=== PATIENT | female | born 1955 | race Two or more races ===

== ENCOUNTER 2019-03-22 14:24 | Emergency (ER) | payer MEDICARE, OTHER ==
[2019-03-22 15:19] LABS: ADD MAN DIFF? NO
[2019-03-22 15:21] LABS: BASOPHIL # 0.1 10^3/ul (0.0-0.1); BASOPHILS % 0.6 % (0.0-2.0); EOSINOPHILS # 0.2 10^3/ul (0.0-0.5); EOSINOPHILS % 2.1 % (0.0-7.0); HEMATOCRIT 37.4 % (37.0-47.0); HEMOGLOBIN 12.3 g/dl (12.0-16.0); LYMPHOCYTES # 3.4 10^3/ul (0.8-2.9); MEAN CORPUSCULAR HEMOGLOBIN 25.3 pg (29.0-33.0); MEAN CORPUSCULAR HGB CONC 32.9 g/dl (32.0-37.0); MEAN PLATELET VOLUME 10.6 fl (7.4-10.4); MONOCYTE # 0.7 10^3/ul (0.3-0.9); MONOCYTES % 7.4 % (0.0-11.0); NEUTROPHIL # 5.6 10^3/ul (1.6-7.5); NEUTROPHILS % 55.5 % (39.0-77.0); PLATELET COUNT 382 10^3/UL (140-415); RED BLOOD COUNT 4.86 10^6/ul (4.20-5.40); RED CELL DISTRIBUTION WIDTH 14.3 % (11.5-14.5)
[2019-03-22 15:27] LABS: MODE ROOM AIR; MetHgb Venous 0.7 %; Sample Type Blood venous; Site VENOUS LINE; Venous COHb 0.1 %; Venous Fraction OxyHgb 32.4 %; Venous Oxygen Sat 32.7 mmHG (55.0-75.0); Venous Total Hemglobin 12.8 g/dl
[2019-03-22] MEDS: SOD CHLORIDE 0.9% 920 ML IV (15:33)
[2019-03-22 15:38] LABS: ANION GAP 11 (5-13); BLOOD UREA NITROGEN 13 mg/dl (7-20); CALCIUM 9.7 mg/dl (8.4-10.2); CARBON DIOXIDE 25 mmol/L (21-31); CHLORIDE 101 mmol/L (97-110); CREATININE 1.17 mg/dl (0.44-1.00); Estimated GFR 47 mL/min (>60); GLUCOSE 394 mg/dl (70-220); MAGNESIUM 1.5 mg/dl (1.7-2.5); PHOSPHORUS 3.5 mg/dl (2.5-4.9); SODIUM 137 mmol/L (135-144)
[2019-03-22 17:40] LABS: ADD UMIC NO; UR ASCORBIC ACID NEGATIVE (NEGATIVE); UR BILIRUBIN (Dip) NEGATIVE (NEGATIVE); UR BLOOD (Dip) NEGATIVE (NEGATIVE); UR CLARITY CLEAR (CLEAR); UR COLOR STRAW (YELLOW); UR GLUCOSE (Dip) 3+ mg/dL (NEGATIVE); UR KETONES (Dip) NEGATIVE (NEGATIVE); UR LEUKOCYTE ESTERASE (Dip) NEGATIVE Leu/ul (NEGATIVE); UR NITRITE (Dip) NEGATIVE (NEGATIVE); UR SPECIFIC GRAVITY (Dip) 1.015 (1.003-1.030); UR TOTAL PROTEIN (Dip) NEGATIVE (NEGATIVE); UR UROBILINOGEN (Dip) NEGATIVE (NEGATIVE)
[2019-03-22] MEDS: MAGNESIUM SULFATE 2 GM/50 ML 50 ML IVPB (18:24)
== END 2019-03-22 19:06 | disposition home or self-care (01) ==
LOC: E/R 14:24
DX: R19.7 Diarrhea, unspecified (principal); R11.10 Vomiting, unspecified; E83.42 Hypomagnesemia; Z79.82 Long term (current) use of aspirin; Z79.84 Long term (current) use of oral hypoglycemic drugs
CPT/HCPCS: 36415; 80048; 81003; 82803; 82962; 83735; 84100; 85025; 96374; 99284-25

== ENCOUNTER 2019-03-30 23:32 | Inpatient (IN) | payer MEDICARE, OTHER ==
[2019-03-31] MEDS: SOD CHLORIDE 0.9% 500 ML IV (02:44)
[2019-03-31] MEDS: morphine 4 MG/ML VIAL IV (02:44)
[2019-03-31] MEDS: ONDANSETRON 4 MG INJ IV ×2 (02:44→08:42)
[2019-03-31 02:46] LABS: ADD MAN DIFF? NO
[2019-03-31 02:49] LABS: BASOPHIL # 0.1 10^3/ul (0.0-0.1); BASOPHILS % 0.6 % (0.0-2.0); EOSINOPHILS # 0.3 10^3/ul (0.0-0.5); EOSINOPHILS % 2.7 % (0.0-7.0); HEMATOCRIT 37.1 % (37.0-47.0); HEMOGLOBIN 11.9 g/dl (12.0-16.0); LYMPHOCYTES # 2.9 10^3/ul (0.8-2.9); LYMPHOCYTES % 30.3 % (15.0-51.0); MEAN CORPUSCULAR HEMOGLOBIN 24.9 pg (29.0-33.0); MEAN CORPUSCULAR HGB CONC 32.1 g/dl (32.0-37.0); MEAN CORPUSCULAR VOLUME 77.6 fl (82.0-101.0); MONOCYTE # 0.6 10^3/ul (0.3-0.9); MONOCYTES % 5.9 % (0.0-11.0); NEUTROPHIL # 5.7 10^3/ul (1.6-7.5); NEUTROPHILS % 60.1 % (39.0-77.0); PLATELET COUNT 342 10^3/UL (140-415); RED BLOOD COUNT 4.78 10^6/ul (4.20-5.40); RED CELL DISTRIBUTION WIDTH 14.4 % (11.5-14.5)
[2019-03-31 02:49] LABS: WHITE BLOOD COUNT 9.5 10^3/ul (4.8-10.8)
[2019-03-31 02:53] LABS: ADD UMIC NO; UR ASCORBIC ACID NEGATIVE (NEGATIVE); UR BILIRUBIN (Dip) NEGATIVE (NEGATIVE); UR BLOOD (Dip) NEGATIVE (NEGATIVE); UR CLARITY CLEAR (CLEAR); UR COLOR YELLOW (YELLOW); UR GLUCOSE (Dip) NEGATIVE (NEGATIVE); UR KETONES (Dip) NEGATIVE (NEGATIVE); UR LEUKOCYTE ESTERASE (Dip) NEGATIVE Leu/ul (NEGATIVE); UR NITRITE (Dip) NEGATIVE (NEGATIVE); UR TOTAL PROTEIN (Dip) NEGATIVE (NEGATIVE); UR UROBILINOGEN (Dip) NEGATIVE (NEGATIVE)
[2019-03-31 03:10] LABS: ALANINE AMINOTRANSFERASE 34 IU/L (13-69); ALBUMIN 3.9 g/dl (3.3-4.9); ALBUMIN/GLOBULIN RATIO 1.08; ALKALINE PHOSPHATASE 90 IU/L (42-121); ANION GAP 10 (5-13); ASPARTATE AMINO TRANSFERASE 24 IU/L (15-46); BILIRUBIN,INDIRECT 0.3 mg/dl (0-1.1); BILIRUBIN,TOTAL 0.3 mg/dl (0.2-1.3); BLOOD UREA NITROGEN 13 mg/dl (7-20); CALCIUM 9.5 mg/dl (8.4-10.2); CARBON DIOXIDE 25 mmol/L (21-31); CHLORIDE 104 mmol/L (97-110); CREATININE 0.94 mg/dl (0.44-1.00); Estimated GFR > 60 mL/min (>60); GLUCOSE 201 mg/dl (70-220); LIPASE 139 U/L (23-300); POTASSIUM 4.1 mmol/L (3.5-5.1); SODIUM 139 mmol/L (135-144); TOTAL PROTEIN 7.5 g/dl (6.1-8.1)
[2019-03-31] MEDS: PIPER-TAZO 3.375 GM IV (PMX) 100 ML IVPB (03:22)
[2019-03-31] MEDS ORDERED: ACETAMINOPHEN 325 MG TAB PO (03:30)
[2019-03-31] MEDS ORDERED: ONDANSETRON 4 MG INJ IV (03:30)
[2019-03-31] MEDS ORDERED: ALBUTEROL/IPRATROPIUM (NEB) 3 ML AMP HHN (04:00)
[2019-03-31] MEDS ORDERED: HYDROCODONE/APAP (5/325) TAB PO (04:00)
[2019-03-31] MEDS ORDERED: NACL 0.9% 3 ML SYG IV (04:00)
[2019-03-31] MEDS: HYDROCODONE/APAP (5/325) TAB PO ×2 (04:51→12:14)
[2019-03-31] MEDS ORDERED: VANCOMYCIN IV PER PHARMACY XX (07:00)
[2019-03-31] MEDS: ACCU-CHEK XX ×4 (07:05→21:00)
[2019-03-31] MEDS: CEFEPIME 1GM/50 ML (PMX) 50 ML IVPB ×2 (08:11→21:34)
[2019-03-31] MEDS: GABAPENTIN 100 MG CAP PO ×3 (08:12→21:34)
[2019-03-31] MEDS: ASPIRIN (EC) 81 MG TAB PO (08:12)
[2019-03-31] MEDS: HEPARIN 5,000 UNIT/1 ML VIAL SC ×2 (08:12→21:39)
[2019-03-31] MEDS: BENAZEPRIL 40 MG TAB PO (08:13)
[2019-03-31] MEDS: VANCOMYCIN 1.5 GM/NS 250 ML 250 ML IVPB (08:18)
[2019-03-31] MEDS: INSULIN ASPART [NOVOLOG] 3 ML PEN SC ×5 (13:22→21:00)
[2019-03-31] MEDS ORDERED: GLUCOSE GEL 15 GRAM TUBE BUCCAL (13:30)
[2019-03-31] MEDS ORDERED: GLUCAGON 1 MG INJ IM (13:30)
[2019-03-31] MEDS ORDERED: DEXTROSE 50% 50 ML SYRINGE IV ×2 (13:30)
[2019-03-31] MEDS ORDERED: GLUCOSE GEL 15 GRAM TUBE PO ×2 (13:30)
[2019-03-31 13:40] LABS: HEMOGLOBIN A1C 13.2 % (0-5.9)
[2019-03-31] MEDS: VANCOMYCIN 1 GM 250 ML IVPB (17:32)
[2019-03-31] MEDS: INSULIN GLARGINE [LANTus] (100 UNITS/ML) SYG SC (20:20)
[2019-03-31] MEDS: ATORVASTATIN 40 MG TAB PO (21:34)
[2019-04-01] MEDS: ACCU-CHEK XX ×5 (02:00→20:43)
[2019-04-01 06:02] LABS: ADD MAN DIFF? NO
[2019-04-01 06:12] LABS: WHITE BLOOD COUNT 6.7 10^3/ul (4.8-10.8)
[2019-04-01 06:12] LABS: BASOPHILS % 0.6 % (0.0-2.0); EOSINOPHILS # 0.2 10^3/ul (0.0-0.5); EOSINOPHILS % 2.4 % (0.0-7.0); HEMATOCRIT 32.1 % (37.0-47.0); HEMOGLOBIN 10.4 g/dl (12.0-16.0); LYMPHOCYTES # 2.3 10^3/ul (0.8-2.9); LYMPHOCYTES % 34.4 % (15.0-51.0); MEAN CORPUSCULAR HEMOGLOBIN 25.5 pg (29.0-33.0); MEAN CORPUSCULAR HGB CONC 32.4 g/dl (32.0-37.0); MEAN CORPUSCULAR VOLUME 78.7 fl (82.0-101.0); MEAN PLATELET VOLUME 11.2 fl (7.4-10.4); MONOCYTE # 0.4 10^3/ul (0.3-0.9); MONOCYTES % 5.4 % (0.0-11.0); NEUTROPHIL # 3.8 10^3/ul (1.6-7.5); NEUTROPHILS % 56.9 % (39.0-77.0); PLATELET COUNT 285 10^3/UL (140-415); RED BLOOD COUNT 4.08 10^6/ul (4.20-5.40); RED CELL DISTRIBUTION WIDTH 14.6 % (11.5-14.5)
[2019-04-01] MEDS: VANCOMYCIN 1 GM 250 ML IVPB ×2 (06:13→17:49)
[2019-04-01 06:55] LABS: ALANINE AMINOTRANSFERASE 23 IU/L (13-69); ALBUMIN/GLOBULIN RATIO 1.11; ALKALINE PHOSPHATASE 73 IU/L (42-121); ANION GAP 4 (5-13); ASPARTATE AMINO TRANSFERASE 22 IU/L (15-46); BILIRUBIN,INDIRECT 0.4 mg/dl (0-1.1); BILIRUBIN,TOTAL 0.4 mg/dl (0.2-1.3); BLOOD UREA NITROGEN 9 mg/dl (7-20); CALCIUM 8.7 mg/dl (8.4-10.2); CARBON DIOXIDE 26 mmol/L (21-31); CHLORIDE 107 mmol/L (97-110); CHOL/HDL RATIO 4.4 RATIO; CHOLESTEROL 137 mg/dl (100-200); CREATININE 0.68 mg/dl (0.44-1.00); Estimated GFR > 60 mL/min (>60); GLUCOSE 148 mg/dl (70-220); HDL CHOLESTEROL 31 mg/dl (35-98); LDL CHOLESTEROL,CALCULATED 76 mg/dl; MAGNESIUM 1.5 mg/dl (1.7-2.5); PHOSPHORUS 3.6 mg/dl (2.5-4.9); POTASSIUM 4.2 mmol/L (3.5-5.1); SODIUM 137 mmol/L (135-144); TOTAL PROTEIN 5.7 g/dl (6.1-8.1); TRIGLYCERIDES 152 mg/dl (0-149)
[2019-04-01] MEDS: INSULIN ASPART [NOVOLOG] 3 ML PEN SC ×7 (07:35→20:41)
[2019-04-01 08:04] LABS: HEMOGLOBIN A1C 13.2 % (0-5.9)
[2019-04-01] MEDS: ASPIRIN (EC) 81 MG TAB PO (08:48)
[2019-04-01] MEDS: GABAPENTIN 100 MG CAP PO ×3 (08:48→20:34)
[2019-04-01] MEDS: HYDROCODONE/APAP (5/325) TAB PO ×2 (08:48→20:37)
[2019-04-01] MEDS: CEFEPIME 1GM/50 ML (PMX) 50 ML IVPB ×2 (08:49→21:33)
[2019-04-01] MEDS: BENAZEPRIL 40 MG TAB PO (08:49)
[2019-04-01] MEDS: HEPARIN 5,000 UNIT/1 ML VIAL SC ×2 (08:52→20:41)
[2019-04-01 17:40] LABS: VANCOMYCIN,TROUGH 14.7 ug/ml (10.0-20.0)
[2019-04-01] MEDS: ATORVASTATIN 40 MG TAB PO (20:34)
[2019-04-01] MEDS: INSULIN GLARGINE [LANTus] (100 UNITS/ML) SYG SC (20:41)
[2019-04-02] MEDS: MAGNESIUM HYDROXIDE 30ML CUP PO (01:54)
[2019-04-02] MEDS: ACCU-CHEK XX ×5 (02:00→20:26)
[2019-04-02] MEDS: VANCOMYCIN 1 GM 250 ML IVPB ×2 (05:26→18:08)
[2019-04-02] MEDS: GABAPENTIN 100 MG CAP PO ×3 (08:09→20:20)
[2019-04-02] MEDS: ASPIRIN (EC) 81 MG TAB PO (08:09)
[2019-04-02] MEDS: BENAZEPRIL 40 MG TAB PO (08:10)
[2019-04-02] MEDS: HEPARIN 5,000 UNIT/1 ML VIAL SC ×2 (08:15→20:19)
[2019-04-02] MEDS: INSULIN ASPART [NOVOLOG] 3 ML PEN SC ×7 (08:16→20:17)
[2019-04-02] MEDS: CEFEPIME 1GM/50 ML (PMX) 50 ML IVPB (08:23)
[2019-04-02] MEDS: RIFAMPIN 300 MG CAP PO (13:48)
[2019-04-02] MEDS: INSULIN GLARGINE [LANTus] (100 UNITS/ML) SYG SC (20:19)
[2019-04-02] MEDS: ATORVASTATIN 40 MG TAB PO (20:20)
[2019-04-03] MEDS: ACCU-CHEK XX ×5 (01:47→21:00)
[2019-04-03] MEDS: VANCOMYCIN 1 GM 250 ML IVPB ×2 (05:00→17:29)
[2019-04-03] MEDS: LACTULOSE 30ML CUP PO (05:24)
[2019-04-03 05:56] LABS: ADD MAN DIFF? NO
[2019-04-03 06:21] LABS: WHITE BLOOD COUNT 6.8 10^3/ul (4.8-10.8)
[2019-04-03 06:21] LABS: BASOPHILS % 0.4 % (0.0-2.0); EOSINOPHILS # 0.1 10^3/ul (0.0-0.5); EOSINOPHILS % 1.8 % (0.0-7.0); HEMATOCRIT 35.4 % (37.0-47.0); HEMOGLOBIN 11.2 g/dl (12.0-16.0); LYMPHOCYTES # 2.1 10^3/ul (0.8-2.9); LYMPHOCYTES % 31.3 % (15.0-51.0); MEAN CORPUSCULAR HEMOGLOBIN 24.7 pg (29.0-33.0); MEAN CORPUSCULAR HGB CONC 31.6 g/dl (32.0-37.0); MEAN CORPUSCULAR VOLUME 78.1 fl (82.0-101.0); MEAN PLATELET VOLUME 11.4 fl (7.4-10.4); MONOCYTE # 0.5 10^3/ul (0.3-0.9); MONOCYTES % 6.9 % (0.0-11.0); NEUTROPHILS % 59.3 % (39.0-77.0); PLATELET COUNT 304 10^3/UL (140-415); RED BLOOD COUNT 4.53 10^6/ul (4.20-5.40); RED CELL DISTRIBUTION WIDTH 14.6 % (11.5-14.5)
[2019-04-03 06:48] LABS: ANION GAP 7 (5-13); BLOOD UREA NITROGEN 8 mg/dl (7-20); CALCIUM 8.9 mg/dl (8.4-10.2); CARBON DIOXIDE 26 mmol/L (21-31); CHLORIDE 105 mmol/L (97-110); Estimated GFR > 60 mL/min (>60); GLUCOSE 168 mg/dl (70-220); POTASSIUM 4.1 mmol/L (3.5-5.1); SODIUM 138 mmol/L (135-144)
[2019-04-03] MEDS: ASPIRIN (EC) 81 MG TAB PO (08:37)
[2019-04-03] MEDS: RIFAMPIN 300 MG CAP PO (08:38)
[2019-04-03] MEDS: BENAZEPRIL 40 MG TAB PO (08:38)
[2019-04-03] MEDS: GABAPENTIN 100 MG CAP PO ×3 (08:38→21:25)
[2019-04-03] MEDS: INSULIN ASPART [NOVOLOG] 3 ML PEN SC ×7 (08:41→21:00)
[2019-04-03] MEDS: HEPARIN 5,000 UNIT/1 ML VIAL SC ×2 (08:42→21:28)
[2019-04-03] MEDS: ACETAMINOPHEN 325 MG TAB PO (20:05)
[2019-04-03] MEDS: INSULIN GLARGINE [LANTus] (100 UNITS/ML) SYG SC (20:08)
[2019-04-03] MEDS: ATORVASTATIN 40 MG TAB PO (21:25)
[2019-04-04] MEDS: ACCU-CHEK XX ×5 (02:00→20:41)
[2019-04-04 05:23] LABS: ADD MAN DIFF? NO
[2019-04-04 05:36] LABS: WHITE BLOOD COUNT 6.3 10^3/ul (4.8-10.8)
[2019-04-04 05:36] LABS: BASOPHILS % 0.6 % (0.0-2.0); EOSINOPHILS # 0.2 10^3/ul (0.0-0.5); EOSINOPHILS % 3.2 % (0.0-7.0); HEMATOCRIT 34.1 % (37.0-47.0); HEMOGLOBIN 10.9 g/dl (12.0-16.0); LYMPHOCYTES # 2.2 10^3/ul (0.8-2.9); LYMPHOCYTES % 35.7 % (15.0-51.0); MEAN CORPUSCULAR HEMOGLOBIN 25.1 pg (29.0-33.0); MEAN CORPUSCULAR VOLUME 78.4 fl (82.0-101.0); MONOCYTE # 0.5 10^3/ul (0.3-0.9); MONOCYTES % 8.4 % (0.0-11.0); NEUTROPHIL # 3.3 10^3/ul (1.6-7.5); NEUTROPHILS % 51.8 % (39.0-77.0); PLATELET COUNT 300 10^3/UL (140-415); RED BLOOD COUNT 4.35 10^6/ul (4.20-5.40); RED CELL DISTRIBUTION WIDTH 14.6 % (11.5-14.5)
[2019-04-04] MEDS: VANCOMYCIN 1 GM 250 ML IVPB (05:55)
[2019-04-04 06:12] LABS: ANION GAP 7 (5-13); BLOOD UREA NITROGEN 8 mg/dl (7-20); CALCIUM 9.1 mg/dl (8.4-10.2); CARBON DIOXIDE 27 mmol/L (21-31); CHLORIDE 104 mmol/L (97-110); CREATININE 0.74 mg/dl (0.44-1.00); Estimated GFR > 60 mL/min (>60); GLUCOSE 155 mg/dl (70-220); POTASSIUM 3.9 mmol/L (3.5-5.1); SODIUM 138 mmol/L (135-144)
[2019-04-04] MEDS: BENAZEPRIL 40 MG TAB PO (08:43)
[2019-04-04] MEDS: GABAPENTIN 100 MG CAP PO ×3 (08:44→20:15)
[2019-04-04] MEDS: ASPIRIN (EC) 81 MG TAB PO (08:44)
[2019-04-04] MEDS: RIFAMPIN 300 MG CAP PO (08:44)
[2019-04-04] MEDS: INSULIN ASPART [NOVOLOG] 3 ML PEN SC ×8 (08:46→20:17)
[2019-04-04] MEDS: HEPARIN 5,000 UNIT/1 ML VIAL SC ×2 (08:47→20:18)
[2019-04-04] MEDS: TRIMETHOPRIM/SULFAMETHOX (DS) TAB NGT (20:15)
[2019-04-04] MEDS: ATORVASTATIN 40 MG TAB PO (20:15)
[2019-04-04] MEDS: INSULIN GLARGINE [LANTus] (100 UNITS/ML) SYG SC (20:17)
[2019-04-05] MEDS: ACCU-CHEK XX ×5 (02:00→21:00)
[2019-04-05 05:58] LABS: ADD MAN DIFF? NO
[2019-04-05 06:07] LABS: BASOPHILS % 0.4 % (0.0-2.0); EOSINOPHILS # 0.2 10^3/ul (0.0-0.5); HEMATOCRIT 33.2 % (37.0-47.0); HEMOGLOBIN 10.9 g/dl (12.0-16.0); LYMPHOCYTES # 2.1 10^3/ul (0.8-2.9); LYMPHOCYTES % 27.4 % (15.0-51.0); MEAN CORPUSCULAR HEMOGLOBIN 25.2 pg (29.0-33.0); MEAN CORPUSCULAR HGB CONC 32.8 g/dl (32.0-37.0); MEAN CORPUSCULAR VOLUME 76.7 fl (82.0-101.0); MEAN PLATELET VOLUME 11.3 fl (7.4-10.4); MONOCYTE # 0.6 10^3/ul (0.3-0.9); MONOCYTES % 8.1 % (0.0-11.0); NEUTROPHIL # 4.7 10^3/ul (1.6-7.5); NEUTROPHILS % 60.7 % (39.0-77.0); PLATELET COUNT 317 10^3/UL (140-415); RED BLOOD COUNT 4.33 10^6/ul (4.20-5.40); RED CELL DISTRIBUTION WIDTH 14.6 % (11.5-14.5)
[2019-04-05 06:07] LABS: WHITE BLOOD COUNT 7.8 10^3/ul (4.8-10.8)
[2019-04-05 06:41] LABS: ANION GAP 7 (5-13); BLOOD UREA NITROGEN 8 mg/dl (7-20); CALCIUM 9.1 mg/dl (8.4-10.2); CARBON DIOXIDE 24 mmol/L (21-31); CHLORIDE 107 mmol/L (97-110); GLUCOSE 130 mg/dl (70-220); POTASSIUM 3.9 mmol/L (3.5-5.1); SODIUM 138 mmol/L (135-144)
[2019-04-05 06:56] LABS: CREATININE 0.91 mg/dl (0.44-1.00); Estimated GFR > 60 mL/min (>60)
[2019-04-05] MEDS: INSULIN ASPART [NOVOLOG] 3 ML PEN SC ×7 (07:35→20:17)
[2019-04-05] MEDS: RIFAMPIN 300 MG CAP PO (08:02)
[2019-04-05] MEDS: GABAPENTIN 100 MG CAP PO ×3 (08:02→20:16)
[2019-04-05] MEDS: TRIMETHOPRIM/SULFAMETHOX (DS) TAB NGT ×2 (08:03→20:16)
[2019-04-05] MEDS: ASPIRIN (EC) 81 MG TAB PO (08:03)
[2019-04-05] MEDS: BENAZEPRIL 40 MG TAB PO (08:03)
[2019-04-05] MEDS: HEPARIN 5,000 UNIT/1 ML VIAL SC ×2 (08:06→20:17)
[2019-04-05] MEDS: ATORVASTATIN 40 MG TAB PO (20:16)
[2019-04-05] MEDS: INSULIN GLARGINE [LANTus] (100 UNITS/ML) SYG SC (20:17)
[2019-04-06] MEDS: ACCU-CHEK XX ×3 (01:16→11:07)
[2019-04-06 05:01] LABS: ADD MAN DIFF? NO
[2019-04-06 05:03] LABS: WHITE BLOOD COUNT 7.2 10^3/ul (4.8-10.8)
[2019-04-06 05:03] LABS: BASOPHILS % 0.4 % (0.0-2.0); EOSINOPHILS # 0.2 10^3/ul (0.0-0.5); EOSINOPHILS % 3.2 % (0.0-7.0); HEMATOCRIT 31.4 % (37.0-47.0); HEMOGLOBIN 10.5 g/dl (12.0-16.0); LYMPHOCYTES # 2.3 10^3/ul (0.8-2.9); LYMPHOCYTES % 31.8 % (15.0-51.0); MEAN CORPUSCULAR HEMOGLOBIN 25.5 pg (29.0-33.0); MEAN CORPUSCULAR HGB CONC 33.4 g/dl (32.0-37.0); MEAN CORPUSCULAR VOLUME 76.2 fl (82.0-101.0); MEAN PLATELET VOLUME 10.9 fl (7.4-10.4); MONOCYTE # 0.5 10^3/ul (0.3-0.9); MONOCYTES % 6.6 % (0.0-11.0); NEUTROPHIL # 4.2 10^3/ul (1.6-7.5); NEUTROPHILS % 57.6 % (39.0-77.0); PLATELET COUNT 306 10^3/UL (140-415); RED BLOOD COUNT 4.12 10^6/ul (4.20-5.40); RED CELL DISTRIBUTION WIDTH 14.6 % (11.5-14.5)
[2019-04-06 05:36] LABS: PHOSPHORUS 4.9 mg/dl (2.5-4.9)
[2019-04-06 05:36] LABS: MAGNESIUM 1.8 mg/dl (1.7-2.5)
[2019-04-06 05:39] LABS: ANION GAP 7 (5-13); BLOOD UREA NITROGEN 9 mg/dl (7-20); CARBON DIOXIDE 24 mmol/L (21-31); CHLORIDE 108 mmol/L (97-110); CREATININE 1.15 mg/dl (0.44-1.00); Estimated GFR 48 mL/min (>60); GLUCOSE 151 mg/dl (70-220); POTASSIUM 3.9 mmol/L (3.5-5.1); SODIUM 139 mmol/L (135-144)
[2019-04-06 06:08] LABS: FERRITIN 13.5 ng/ml (11.1-264.0)
[2019-04-06 06:29] LABS: IRON 43 ug/dl (35-150)
[2019-04-06 06:38] LABS: % IRON SATURATION 14 % SAT (22-52); TOTAL IRON BINDING CAPACITY 302 ug/dl (241-421)
[2019-04-06] MEDS: ASPIRIN (EC) 81 MG TAB PO (08:17)
[2019-04-06] MEDS: TRIMETHOPRIM/SULFAMETHOX (DS) TAB NGT (08:17)
[2019-04-06] MEDS: GABAPENTIN 100 MG CAP PO ×2 (08:17→13:07)
[2019-04-06] MEDS: BENAZEPRIL 40 MG TAB PO (08:18)
[2019-04-06] MEDS: RIFAMPIN 300 MG CAP PO (08:18)
[2019-04-06] MEDS: INSULIN ASPART [NOVOLOG] 3 ML PEN SC ×4 (08:21→13:07)
[2019-04-06] MEDS: HEPARIN 5,000 UNIT/1 ML VIAL SC (08:22)
[2019-04-06] MEDS ORDERED: RIFAMPIN 300 MG CAP PO (12:00)
[2019-04-06] MEDS: CHOLECALCIFEROL 1,000 UNIT TAB PO (16:14)
[2019-04-06] MEDS ORDERED: DOXYCYCLINE 100 MG TAB PO (21:00)
== END 2019-04-06 17:03 | disposition home or self-care (01) | DRG 638 ==
LOC: E/R 23:32 → MS3 03-31 03:17
DX: E11.622 Type 2 diabetes mellitus with other skin ulcer (principal); L97.829 Non-pressure chronic ulcer of other part of left lower leg with unspecified severity; I87.8 Other specified disorders of veins; I10 Essential (primary) hypertension; E78.5 Hyperlipidemia, unspecified; E66.9 Obesity, unspecified; Z68.37 Body mass index [BMI] 37.0-37.9, adult; Z79.4 Long term (current) use of insulin
CPT/HCPCS: 36415; 80048; 80053; 80061; 80202; 81003; 82306; 82652; 82728; 82962; 83036; 83540; 83690; 83735; 84100; 85025; 87040-91; 87070; 87081; 96361; 96374; 96375; 99285-25